=== PATIENT | female | born 1965 | race Caucasian/White ===

== ENCOUNTER 2023-03-17 21:24 | Emergency (ER) | payer BC, SELFPAY ==
[2023-03-17 21:25] VITALS: BP 161/96; PULSE 86; RESP 15; TEMP 36.7; O2SAT 99
[2023-03-17 21:29] VITALS: BMI 48.6
--- NOTE | 2023-03-17 21:40 | RAD_ITS ---
EXAM: XR LEFT FOOT COMPLETE, 3 OR MORE VIEWS CLINICAL INDICATION: foreign body TECHNIQUE: Frontal, lateral and oblique views of the left foot. COMPARISON: No relevant prior studies available. FINDINGS: BONES/JOINTS: See below. SOFT TISSUES: There is metallic nail in the soft tissues of the sole the foot between the first and second metatarsals. There is no bony involvement. No fractures are identified. No soft tissue swelling or gas. RAD/Foot min 3 Views IMPRESSION: Metallic nail in the sole the foot between the first and second metatarsals. There is no osseous abnormality. Electronically Signed: Ernesto Moreno MD at 22:08 EDT ,
[2023-03-17 23:13] VITALS: PULSE 89; RESP 16; O2SAT 97
--- NOTE | 2023-03-17 23:15 | ED.VIS.LOWEX ---
HPI History of Present Illness Chief Complaint: Lower Extremity Injury Narrative Narrative: 57-year-old female presents with nail in the foot. She states that she stepped on it with her left foot while in the yard. She recently had her house removed and this was apparently left over in the yard. Patient's last tetanus is unknown. No active bleeding. PFSH PFSH Home Medications cephalexin 500 mg capsule 500 mg PO Q8H 5 days #15 caps 03/17/23 [Rx Last Taken Unknown] Allergy/AdvReac Type Severity Reaction Status Date / Time Sulfa (Sulfonamide Allergy Hives Verified 03/17/23 21:30 Antibiotics) erythromycin base AdvReac Diarrhea Verified 03/17/23 21:30 Social History Smoking Status: Never smoker ROS ROS ED Constitutional Constitutional ED: Denies chills, fever(s) or sweats Eyes Eyes: Denies blurry vision or change in vision ENT ENT ED: Denies ear pain or sore throat Cardiovascular Cardiovascular: Denies chest pain, palpitations or racing heartbeat Respiratory/Chest Respiratory/Chest: Denies cough, dyspnea or sputum Gastrointestinal Gastrointestinal: Denies abdominal pain, constipation, diarrhea, nausea or vomiting Genitourinary Genitourinary ED: Denies dysuria, hematuria or urinary frequency Musculoskeletal Musculoskeletal: Denies arthralgias, myalgias or neck pain Integumentary Reports other Details: Nail puncture wound left foot ; Denies abscess, Abrasions or rash Neurologic Neurologic: Denies headache(s), paresthesias or weakness Psychiatric Psychiatric: Denies anxiety, depression, suicidal ideation or suicidal thoughts Endocrine Endocrinology: Denies polydipsia or polyuria EXAM Physical Exam Const Vital Signs: 03/17/23 21:25 Temperature 98.1 F Temperature Source Temporal Pulse Rate 86 Respiratory Rate 15 Blood Pressure 161/96 H Blood Pressure Mean 117 Pulse Ox 99 Oxygen Delivery Method Room Air Positive well nourished HEENT atraumatic and trauma Resp normal respiratory effort and no retractions Auscultation: Negative for rales, rhonchi or wheezes Cardio regular rate and regular rhythm Extremity Extremity Narrative: There is a nail embedded in the left foot. There is no surrounding induration or erythema. Left foot neurovascular intact brisk cap refill to all 5 toes. Neuro oriented x3 Sensorium / Orientation: alert MDM MDM MDM Narrative Medical decision making narrative: Initially tried to pull the nail without anesthesia however this is lodged in the skin. This is likely due to the type of nail it is as it is a janeen nail. Patient foot was cleaned and then sterilized with Betadine. Patient was anesthetized with 5 cc of lidocaine with epinephrine with good anesthesia achieved. I was able to pull this out with a needle milk pickup driver of the laceration kit with no difficulty. Minimal bleeding afterwards. I held the patient's foot soaked in soapy water. She will be put on Keflex to prevent infection. Tetanus was updated. Patient declined analgesia Impression: 1. Puncture wound left foot 2. Foreign body removal left foot. Radiography Diagnostic Testing: Clinical Impression(s) from Imaging Studies Foot X-Ray 03/17/23 21:40 IMPRESSION: Metallic nail in the sole the foot between the first and second metatarsals. There is no osseous abnormality. Electronically Signed: Ernesto Moreno MD at 22:08 EDT , Discharge Plan Triage Chief Complaint: Lower Extremity Injury ED Provider: Steve Bejarano Dx/Rx/DC Orders Instructions: ED Foreign Body, Soft Tissue (Removed) Prescriptions: New cephalexin 500 mg capsule 500 mg PO Q8H 5 Days Qty: 15 0RF Primary Care Provider: GUNNAR DELGADO Referrals: GUNNAR DELGADO MD [Primary Care Provider] - Disposition Disposition: Home, Self Care
[2023-03-17] MEDS: Diphth,Pertuss(Acell),Tet Vac 0.5 ML Vial IM (23:23)
[2023-03-17] MEDS: Cephalexin 250 MG Capsule 500 MG PO (23:23)
== END 2023-03-17 23:47 | disposition home or self-care (01) ==
PROVIDERS: Emergency Provider Student in an Organized Health Care Education/Training Program; PCP Specialist; Visit Provider Student in an Organized Health Care Education/Training Program
DX: S91.342A Puncture wound with foreign body, left foot, initial encounter (principal); W22.8XXA Striking against or struck by other objects, initial encounter; Y92.017 Garden or yard in single-family (private) house as the place of occurrence of the external cause; Z23 Encounter for immunization
CPT/HCPCS: 73630; 90715; 99283

== ENCOUNTER 2024-03-10 17:19 | Inpatient (IN) | payer BC, SELFPAY ==
[2024-03-10 17:20] VITALS: BP 141/88; PULSE 137; RESP 24; TEMP 37.1; O2SAT 93; BMI 47.5
[2024-03-10 17:28] VITALS: PULSE 125; RESP 22; TEMP 37.9; O2SAT 92
--- NOTE | 2024-03-10 17:49 | EDS_ITS ---
HPI History of Present Illness Chief Complaint: Cold Sx Informant: patient Onset/Context/Timing Onset: Days Narrative Narrative: Patient presents secondary to URI symptoms with cough and fever. She states about a month ago she got a cold. Her doctor put her on an inhaler, steroids, and an antibiotic. She states she improved but never felt like she completely got over that illness. For the past 4 days she has now had worsening symptoms again and has had fever for the past 36 hours. She does have cough and this evening vomited. She has no urinary symptoms and no diarrhea. She had a sore throat initially but states that seems to be improving. [facility] Medical History (Updated 03/10/24 @ 22:[address] Susan Angel MD) Haylee's disease Asthma Allergy/AdvReac Type Severity Reaction Status Date / Time Sulfa (Sulfonamide Allergy Hives Verified 03/10/24 17:20 Antibiotics) erythromycin base AdvReac Diarrhea Verified 03/10/24 17:20 Social History Smoking Status: Never smoker ROS ROS ED Constitutional Constitutional ED: Reports fever(s) and sweats Eyes Eyes: Denies change in vision ENT ENT ED: Reports rhinorrhea, sore throat and other Details: Sinus congestion Cardiovascular Cardiovascular: Denies chest pain Respiratory/Chest Respiratory/Chest: Reports cough Gastrointestinal Gastrointestinal: Reports vomiting; Denies abdominal pain or diarrhea Genitourinary Genitourinary ED: Denies dysuria or urinary frequency Integumentary Denies rash Neurologic Neurologic: Reports weakness Psychiatric Psychiatric: Denies anxiety or depression EXAM Physical Exam Const Vital Signs: 03/10/24 17:20 03/10/24 17:28 03/10/24 18:11 Temperature 98.7 F 100.3 F H Temperature Source Temporal Oral Pulse Rate 137 H 125 H Respiratory Rate 24 H 22 H Respiratory Effort Short of Breath Respiratory Pattern Tachypnea Blood Pressure 141/88 H Blood Pressure Mean 105 Pulse Ox 93 92 Oxygen Delivery Method Room Air Room Air 03/10/24 19:13 03/10/24 20:03 03/10/24 22:00 Temperature 100.2 F H 98.8 F Temperature Source Oral Oral Pulse Rate 100 97 Respiratory Rate 30 H 23 H Respiratory Effort Respiratory Pattern Blood Pressure 113/53 L 161/90 H Blood Pressure Mean 73 113 Pulse Ox 92 93 Oxygen Delivery Method Room Air Room Air Positive well nourished and well developed General Appearance ED: well developed HEENT Reports moist mucous membranes Eyes EOMs intact bilaterally Chest Wall inspection of chest normal and palpation of chest normal Resp normal respiratory effort and clear to auscultation bilaterally Cardio regular rhythm Rate: tachycardic GI non-tender Palpation: soft Extremity normal to inspection Neuro oriented x3 and no sensory deficits noted Motor Exam: strength 5/5 throughout Psych mental status grossly normal Skin no rashes or lesions noted MDM MDM MDM Narrative Medical decision making narrative: Given the patient's low-grade fever and tachycardia I will have nursing staff insert an IV. She will be given IV fluids along with Zofran and Tylenol. Labwork obtained to evaluate for leukocytosis, anemia, and electrolyte derangement. Chest x-ray obtained to evaluate for acute lung pathology, cardiac size, or mediastinal abnormality. Swab for COVID, influenza, and RSV will be obtained. History & Record Review Discussion w/independent historian: Patient Lab Data Attestation: I reviewed the patient's lab results. Labs: Laboratory Results - last 24 hr 03/10/24 03/10/24 17:50 20:47 WBC 21.4 H RBC 4.47 Hgb 13.4 Hct 40.6 MCV 90.8 MCH 30.0 MCHC 33.0 RDW Std Deviation 45.0 H RDW Coeff of Leonardo 13.5 Plt Count 267 MPV 10.3 Immature Gran % (Auto) 0.700 Neut % (Auto) 84.2 H Lymph % (Auto) 9.2 L [place] % (Auto) 5.6 Eos % (Auto) 0.0 Baso % (Auto) 0.3 Absolute Neuts (auto) 18.0 H Absolute Lymphs (auto) 1.96 Nucleated RBC % 0 Sodium 133 L Potassium 3.2 L Chloride 97 L Carbon Dioxide 24.0 Anion Gap 12 BUN 11 Creatinine 0.91 Estim Creat Clear Calc 94.63 Est GFR (MDRD) Af Amer 82 Est GFR (MDRD) Non-Af 68 BUN/Creatinine Ratio 12.1 Glucose 135 H Calcium 9.0 Urine Color Yellow Urine Clarity Sl. Cloudy Urine pH 7.0 Ur Specific [place] 1.005 Urine Protein Negative Urine Glucose (UA) Normal Urine Ketones 5 H Urine Occult Blood Negative Urine Nitrite Negative Urine Bilirubin Negative Urine Urobilinogen Normal Ur Leukocyte Esterase Negative Urine RBC 0 SEEN Urine WBC 0 SEEN Ur Squamous Epith Cells 0-5 SEEN Urine Bacteria 0 SEEN Urine Mucus 0 SEEN Radiography Chest X-Ray - ED: 1 View, Read by ED Physician, Chronic Changes and No Infiltrates Diagnostic Testing: Clinical Impression(s) from Imaging Studies Chest X-Ray 03/10/24 18:05 IMPRESSION: No acute radiographic abnormalities. Electronically Signed: Hai Bonds MD at 18:21 EDT , Chest CTA 03/10/24 19:32 IMPRESSION: Moderate volume nonocclusive acute pulmonary emboli in the right subsegmental and left segmental and subsegmental pulmonary arteries. No evidence of right heart strain. Bubbly consolidation with groundglass opacities in the left lower lobe most likely represents lung infarction. Cannot rule out superimposed infection. 1.5 cm irregular pulmonary nodule in the left lower lobe. Recommend follow-up chest CT in 3 months, PET/CT and/or biopsy. Electronically Signed: Hai Bonds MD at 21:39 EDT , ADDENDUM: 03/10/24 2153 IMPRESSION: Moderate volume nonocclusive acute pulmonary emboli in the right subsegmental and left segmental and subsegmental pulmonary arteries. No evidence of right heart strain. Bubbly consolidation with groundglass opacities in the left lower lobe most likely represents lung infarction. Cannot rule out superimposed infection. 1.5 cm irregular pulmonary nodule in the left lower lobe. Recommend follow-up chest CT in 3 months, PET/CT and/or biopsy. N.B. : Susan Angel MD, confirmed on 03/10/2024 21:46:33 (ET) that the healthcare facility has received the radiology report. Electronically Signed: Hai Bonds MD at 21:39 EDT , Abdomen/Pelvis CT 03/10/24 19:33 IMPRESSION: Minimal bilateral hydronephrosis. No obstructing stone or mass seen. Electronically Signed: Hai Bonds MD at 21:42 EDT , EKG Initial EKG: Attestation: I personally reviewed and interpreted this EKG as follows: Interpretation: Sinus Tachycardia (Sinus tachycardia at 108. No significant ischemia. QTc is 466.) Treatment and Re-Evaluation :: CBC was elevated white count 21.4 with 84% neutrophils. Hemoglobin is 13.4. Chemistry studies reveal a sodium of 133 and a chloride of 97. Potassium is slightly low at 3.2. Renal function is unremarkable. Glucose is 135. Urinalysis reveals no evidence of acute infection. Swab for COVID, influenza, and RSV is negative. Portable chest x-ray per my interpretation was no obvious infiltrate. Radiology interpretation reviewed and agrees. On repeat vital signs, patient continues to have tachypnea with a respiratory rate of 30 and a pulse ox of 92% on room air just lying at rest. She remains borderline tachycardic at 100 bpm. Patient sent for CTA of the chest to evaluate for potential infiltrate or PE as well as a CT scan of the abdomen and pelvis given her leukocytosis and vomiting. CT scan of the chest reveals moderate volume nonocclusive acute pulmonary emboli in the right subsegmental and left segmental and subsegmental pulmonary arteries. No evidence of right heart strain. There is a bubbly consolidation in the left lower lobe that most likely represents lung infarction. Cannot rule out superimposed infection. CT scan of the abdomen pelvis reveals mild bilateral hydronephrosis but no evidence of stone or mass. Test results discussed with the patient. Lying in bed her O2 sat is 90%. As were talking and goes up to 92-93%. I did discuss with the patient that given her fever and cough I do suspect she also has underlying pneumonia. I will obtain an EKG to ensure normal QTc with plan to give her Levaquin. I will also give her a dose of Lovenox and give her oral potassium replacement for her slightly low potassium. Given her bilateral emboli with pneumonia versus infarct as well as borderline O2 sats when lying in bed, I do feel she should be observed overnight. I will speak with the hospitalist. Discharge Plan Dx/Rx/DC Orders Clinical Impression: Pulmonary emboli, Pneumonia, Hypokalemia Disposition Disposition: Acute Care Hospital [facility]
[2024-03-10] MEDS: 0.9% Normal Saline (1000mL) 1,000 ML 1000 ML IV (17:55)
[2024-03-10] MEDS: Acetaminophen 500 MG Tablet 1000 MG PO (17:56)
--- NOTE | 2024-03-10 17:58 | ED.RN ---
Pt refused Zofran @ this time aFter medication was pulled into a syringe. Scanner min room not functional, medication wasted.
[2024-03-10 18:05] LABS: Absolute Lymphocyte Count 1.96 X10^3/uL (0.83-4.51); Basophil# 0.07 X10^3/uL; Basophil% 0.3 % (0-1); Eosinophil# 0.01 X10^3/uL; Hematocrit 40.6 % (37-47); Hemoglobin 13.4 g/dL (12.0-15.0); Lymphocyte # 1.96 X10^3/ul (0.83-4.51); Lymphocyte % 9.2 % (19-41); Mean Corpuscular Volume 90.8 fL (81-99); Mean Platelet Vol. 10.3 fl (6.2-12.0); Monocyte# 1.19 X10^3/uL; Monocyte% 5.6 % (0-10); NRBC Flagged by Analyzer 0 % (0-5); Neutrophil # 18.02 X10^3/uL (2.7-7.7); Neutrophil % 84.2 % (47-70); Platelet Count 267 K/mm3 (150-450); RBC Distribution Width CV 13.5 % (11.6-14.6); Red Blood Count 4.47 M/mm3 (4.2-5.4); White Blood Count 21.4 K/mm3 (4.4-11.0)
--- NOTE | 2024-03-10 18:05 | RAD_ITS ---
INDICATION: cough EXAMINATION/TECHNIQUE: X-RAY - XR Chest 1 View COMPARISON: 07/17/2010. FINDINGS: The lungs are clear. Tortuous and calcified thoracic aorta. The heart is mildly enlarged. No pleural effusion or pneumothorax. Degenerative changes of the thoracic spine. RAD/Chest 1 View (Portable) IMPRESSION: No acute radiographic abnormalities. Electronically Signed: Hai Bonds MD at 18:21 EDT ,
[2024-03-10 18:20] LABS: Anion Gap 12 (5-15); BUN 11 mg/dL (7-18); BUN/Creat Ratio 12.1 RATIO (10-20); Chloride 97 mmol/L (98-107); Creatinine, Serum 0.91 mg/dL (0.55-1.02); EST Glomerular Filtration Rate 68 mL/min (>60); Est Glom Filt Rate - Afr Amer 82 mL/min (>60); Estimated Creatinine Clearance 94.63 ml/min; Glucose 135 mg/dL (74-106); Potassium 3.2 mmol/L (3.5-5.1); Sodium Level 133 mmol/L (136-145)
[2024-03-10 19:13] VITALS: BP 113/53; PULSE 100; RESP 30; TEMP 37.9; O2SAT 92
--- NOTE | 2024-03-10 19:32 | CT_ITS ---
INDICATION: sob EXAMINATION: CTA Chest WO/W Contrast Injection TECHNIQUE: Helically acquired images were obtained of the chest following administration of IV contrast. A radiation dose optimization technique was used for this scan. 3D postprocessing images including MIPS were reviewed. IV Contrast dosage and agent: IV 100mL [id number]-370 COMPARISON: None. FINDINGS: Lungs: Bubbly consolidation with groundglass opacities in the left lower lobe. There is a 1.5 cm irregular pulmonary nodule in the left lower lobe (image 76, series 2). Mediastinum: The cardiomediastinal silhouette is not enlarged. No mediastinal, hilar or axillary adenopathy. Mild aortic arch and coronary artery calcifications. Moderate volume nonocclusive clot seen within the right subsegmental and left segmental and subsegmental pulmonary arteries. No evidence of right heart strain. Pleura: Unremarkable Bones/Soft tissues: There are diffuse degenerative changes of the spine. Upper abdomen: Refer to CT abdomen pelvis report same date CT/CTA Chest W/WO Contrast IMPRESSION: Moderate volume nonocclusive acute pulmonary emboli in the right subsegmental and left segmental and subsegmental pulmonary arteries. No evidence of right heart strain. Bubbly consolidation with groundglass opacities in the left lower lobe most likely represents lung infarction. Cannot rule out superimposed infection. 1.5 cm irregular pulmonary nodule in the left lower lobe. Recommend follow-up chest CT in 3 months, PET/CT and/or biopsy. Electronically Signed: Hai Bonds MD at 21:39 EDT ,
--- NOTE | 2024-03-10 19:33 | CT_ITS ---
INDICATION: vomiting, leukocytosis, fever EXAMINATION: CT Abdomen And Pelvis W/ Contrast Injection TECHNIQUE: Helically acquired images were obtained of the abdomen and pelvis after IV contrast. A radiation dose optimization technique was used for this scan. IV Contrast dosage and agent: IV 100mL Isovue-370 Oral contrast: None. COMPARISON: None. FINDINGS: Visualized lung bases: Refer to CT chest report same date Liver: Unremarkable Gallbladder: Surgically absent. Spleen: Unremarkable Pancreas: Unremarkable Adrenal Glands: Unremarkable Kidneys: Minimal bilateral hydronephrosis. No obstructing stone or mass seen. Vasculature: Unremarkable GI Tract: Unremarkable Lymphadenopathy: None Peritoneum: No ascites. Bladder: Unremarkable Reproductive organs: Bilateral tubal ligation clips. Bones/Soft tissues: No suspicious osseous or soft tissue lesions CT/Abdomen/Pelvis W IV Cont ONLY IMPRESSION: Minimal bilateral hydronephrosis. No obstructing stone or mass seen. Electronically Signed: Hai Bonds MD at 21:42 EDT ,
[2024-03-10 20:03] VITALS: TEMP 37.1
[2024-03-10 20:56] LABS: Bacteria 0 SEEN /hpf (None Seen); Mucous, Urine 0 SEEN /hpf (<or=2+); Red Blood Cells-Urine 0 SEEN /hpf (0-5); White Blood Cells 0 SEEN /hpf (0-5)
[2024-03-10 21:17] LABS: Color, Urine Yellow (Yellow); Glucose, Dipstick Normal (Normal); Ketone-Dipstick 5 mg/dl (Negative); Leukocyte Esterase-Dipstick Negative /ul (Negative); Nitrite-Dipstick Negative (Negative); Occult Blood-Urine Negative /ul (Negative); Protein-Dipstick Negative (Negative); Specific Gravity, Urine 1.005 (1.002-1.030); Urine Bilirubin Dipstick Negative (Negative); Urine Clarity Sl. Cloudy (Clear); Urine Urobilinogen Normal (Normal)
[2024-03-10 21:30] LABS: Squamous Epithelial Cells - UA 0-5 SEEN /hpf (5-10)
--- NOTE | 2024-03-10 21:59 | EKG12_ITS ---
Test Reason : COLD SX Blood Pressure : / mmHG Vent. Rate : 108 BPM Atrial Rate : 108 BPM P-R Int : 142 ms QRS Dur : 098 ms QT Int : 348 ms P-R-T Axes : 060 041 035 degrees QTc Int : 466 ms Sinus tachycardia MINOR Nonspecific ST abnormality BORDERLINE Confirmed by Con Candelaria ([id number]), continuity editor BRIANNA RUBIO ([id number]) on 03/14/2024 7:00:49 AM Referred By: Vivian Saini Confirmed By:Con Candelaria
[2024-03-10 22:00] VITALS: BP 161/90; PULSE 97; RESP 23; O2SAT 93
--- NOTE | 2024-03-10 22:12 | PCM.HP.STD ---
HPI - General General Date of Admission: 03/10/24 Date of Service: 03/10/24 Chief Complaint: URI symptoms, worsening. HPI Narrative The patient is a 58 y/o F w/ PMHx: History Diabetes mellitus type II (reported prior HgbA1c 7%-->recent 5% with weight loss, lifestyle/diet changes), HAY on CPAP q HS, Morbid obesity, Asthma, Haylee's disease with hypothyroidism who presents to the [facility] ED on 03/10/2024 with recent history of ongoing URI type symptoms with fatigue, malaise, cough and fevers with symptoms starting several weeks prior with PCP evaluation with inhaler, steroids and antibiotic therapy with some improvement but she felt like she never completely resolved and unfortunately over the past 4 days her symptoms significantly worsened and she started having a fever over the last 36 hours with onset of nausea and emesis and ongoing cough prompting ED evaluation. In addition she reports recent prolonged drive from [place] with very minimal stops noting that they left on Thursday and returned this past Thursday with onset of left lower extremity discomfort the day following her return. Of note she does have a family history in her father of Marfan syndrome but has had a workup and is negative herself. Workup in the ED included Tmax 100.3, heart rate 137, BP 141/88, respiratory rate 24, 93% on room air, most recent repeat vital signs T98.8, heart rate 100, BP 113/53, respiratory rate 30, 92% on room air, CBC with WBC 21.4, human 13.4, platelet 267 with left shift, BMP with sodium 133, potassium 3.2, chloride 97, glucose 135, urinalysis not marked appearing, SARS COVID/influenza/RSV PCR negative, chest x-ray with no acute cardiopulmonary findings, chest CT PA with moderate volume nonocclusive acute pulmonary emboli right subsegmental and left segmental and subsegmental pulmonary arteries with no evidence of any right heart strain, bubbly consolidation with ground-glass opacities left lower lobe consistent with a lung infarction although cannot rule out a superimposed infection, 1.5 cm irregular pulmonary nodule left lower lobe, CT abdomen and pelvis with minimal bilateral hydronephrosis with no obstructing stone or mass seen. In the ED patient administered potassium 40 mill equivalent p.o. x 1, Zofran 4 mg IV x 1, Lovenox 130 mg subcu x 1, Tylenol 1000 mg p.o. x 1 and 1 L normal saline bolus. ED physician noted plan to obtain EKG to evaluate QTc and if appropriate administer Levaquin therapy for concern for pneumonia. [facility] Medical History History of diabetes mellitus HAY on CPAP Hypothyroidism Morbid obesity Haylee's disease Asthma Home Medications ?Medication ?Instructions ?Recorded ?Last Taken ?Type albuterol sulfate 90 mcg/actuation 2 puff inhalation Q4H PRN PRN 03/10/24 Unknown History aerosol inhaler shortness of breath or wheezing cholecalciferol (vitamin D3) 250 10,000 unit PO DAILY 03/10/24 Unknown History mcg (10,000 unit) capsule Supplimentation cyanocobalamin (vitamin B-12) 1,000 mcg PO QMONTH Supplimentation 03/10/24 Unknown History 1,000 mcg capsule fluticasone propionate 50 2 spray intranasal QODAY Allergies 03/10/24 Unknown History mcg/actuation nasal spray,suspension levothyroxine 88 mcg tablet 88 mcg PO DAILY hypothyroid 03/10/24 Unknown History [id number]-[id number] acid 0.4 1 tab PO DAILY Supplimentation 03/10/24 Unknown History mg-lycopene 300 mcg-lutein 250 mcg tablet (Centrum Silver) omega 5-xny-vrn-fish oil 1,200 mg 1 cap PO DAILY Suppliumentation 03/10/24 Unknown History (144 mg-216 mg) capsule (Fish Oil) semaglutide (weight loss) 1 mg/0.5 0.25 mg subcut QWEEK Weight Loss 03/10/24 Unknown History mL subcutaneous pen injector Allergy/AdvReac Type Severity Reaction Status Date / Time Sulfa (Sulfonamide Allergy Hives Verified 03/10/24 17:20 Antibiotics) erythromycin base AdvReac Diarrhea Verified 03/10/24 17:20 Family History (Updated 03/10/24 @ 23:[address] Vivian Saini MD) Mother Thyroid disorder MVP (mitral valve prolapse) Father Heart disease Aortic aneurysm Marfan syndrome Surgical History S/P dilation and curettage Status post endometrial ablation History of dental surgery History of tonsillectomy and adenoidectomy S/P cholecystectomy Social History (Updated 03/10/24 @ 23:[address] Vivian Saini MD) household members: spouse Smoking Status: Never smoker alcohol intake: never substance use type: does not use ROS ROS Narrative Admission Review of Systems: CONSTITUTIONAL: No weight loss, + fever, chills, weakness or fatigue. HEENT: + Congestion, runny nose, sore throat, sneezing. Eyes: No visual loss, blurred vision, double vision or yellow sclerae. Ears, Nose, Throat: No hearing loss. SKIN: No rash or itching, lesions, wounds. CARDIOVASCULAR: No chest pain, chest pressure or chest discomfort, palpitations, edema, orthopnea, syncopal events. RESPIRATORY: + Dry cough, no marked sputum, dyspnea. No wheezing, hemoptysis. GASTROINTESTINAL: + Anorexia, nausea, vomiting. No diarrhea, abdominal pain, melena, BRBPR. GENITOURINARY: No dysuria, frequency, urgency or retention. NEUROLOGICAL: No headache, dizziness, syncope, paralysis, ataxia, numbness or tingling in the extremities, focal weakness, change in bowel or bladder control, seizure. MUSCULOSKELETAL: + muscle, back pain, joint pain or stiffness. HEMATOLOGIC: No anemia, bleeding or bruising. LYMPHATICS: No enlarged nodes. No history of splenectomy. PSYCHIATRIC: No history of depression or anxiety. ENDOCRINOLOGIC: No reports of sweating, cold or heat intolerance. No polyuria or polydipsia. ALLERGIES: + History of hives, asthma, allergic rhinitis. Vital Signs Vital Signs Vital Signs: 03/10/24 17:20 03/10/24 17:28 03/10/24 18:11 Temperature 98.7 F 100.3 F H Temperature Source Temporal Oral Pulse Rate 137 H 125 H Respiratory Rate 24 H 22 H Respiratory Effort Short of Breath Respiratory Pattern Tachypnea Blood Pressure 141/88 H Blood Pressure Mean 105 Pulse Ox 93 92 Oxygen Delivery Method Room Air Room Air 03/10/24 19:13 03/10/24 20:03 03/10/24 22:00 Temperature 100.2 F H 98.8 F Temperature Source Oral Oral Pulse Rate 100 97 Respiratory Rate 30 H 23 H Respiratory Effort Respiratory Pattern Blood Pressure 113/53 L 161/90 H Blood Pressure Mean 73 113 Pulse Ox 92 93 Oxygen Delivery Method Room Air Room Air Weight Weight: 294 lb 3.2 oz Body Mass Index (BMI) 47.5 Physical Exam Narrative Physical Examination: General: Awake, alert, oriented x 3 and cooperative, seated upright in the ED bed, fatigued appearing, intermittent coughing during evaluation. Skin: Normal color, normal turgor, no icterus, no cyanosis. HEENT: AT/NC, EOMI, PERRLA, dry MM, no carotid bruits or JVD noted; however, thickened neck makes evaluation difficult. Lungs: Diminished, greater bases, right greater than left, mildly increased respiratory rate but no distress, coughing elicited with deep inspiratory effort, no rales, ronchi or wheezing. Heart: Tachycardic with regular rhythm; no gallop, rub audible. Abdomen: Soft, morbidly obese, NTTP, distant mildly hyperactive BS, no appreciated distention or HSM; however, habitus makes evaluation difficult. Extremities: No cyanosis, no clubbing, no marked peripheral edema. Neurological: Patient awake, alert, oriented as noted, cognitive function intact; pupils equally reactive to light and accommodation, cranial nerves grossly normal, moving all 4 extremities, no focal deficits, strength moderately to severely global decreased secondary to acute presentation complaints. Psychiatric: Affect appears flat, fatigued, ill-appearing, no acute evidence of depressive or anxiety feelings. Results Lab / Micro Data 03/10/24 17:50 03/10/24 17:50 Labs: Laboratory Results - last 24 hr 03/10/24 17:50: WBC 21.4 H, RBC 4.47, Hgb 13.4, Hct 40.6, MCV 90.8, MCH 30.0, MCHC 33.0, RDW Std Deviation 45.0 H, RDW Coeff of Leonardo 13.5, Plt Count 267, MPV 10.3, Immature Gran % (Auto) 0.700, Neut % (Auto) 84.2 H, Lymph % (Auto) 9.2 L, [place] % (Auto) 5.6, Eos % (Auto) 0.0, Baso % (Auto) 0.3, Absolute Neuts (auto) 18.0 H, Absolute Lymphs (auto) 1.96, Nucleated RBC % 0, Sodium 133 L, Potassium 3.2 L, Chloride 97 L, Carbon Dioxide 24.0, Anion Gap 12, BUN 11, Creatinine 0.91, Estim Creat Clear Calc 94.63, Est GFR (MDRD) Af Amer 82, Est GFR (MDRD) Non-Af 68, BUN/Creatinine Ratio 12.1, Glucose 135 H, Calcium 9.0 03/10/24 20:47: Urine Color Yellow, Urine Clarity Sl. Cloudy, Urine pH 7.0, Ur Specific [place] 1.005, Urine Protein Negative, Urine Glucose (UA) Normal, Urine Ketones 5 H, Urine Occult Blood Negative, Urine Nitrite Negative, Urine Bilirubin Negative, Urine Urobilinogen Normal, Ur Leukocyte Esterase Negative, Urine RBC 0 SEEN, Urine WBC 0 SEEN, Ur Squamous Epith Cells 0-5 SEEN, Urine Bacteria 0 SEEN, Urine Mucus 0 SEEN Micro: Microbiology 03/10/24 18:00 Mucosa - Nose SARS-CoV-2, Influenza & RSV (PCR) - Final Imaging Radiology Impression Chest X-Ray 03/10/24 18:05 IMPRESSION: No acute radiographic abnormalities. Electronically Signed: Hai Bonds MD at 18:21 EDT , Chest CTA 03/10/24 19:32 IMPRESSION: Moderate volume nonocclusive acute pulmonary emboli in the right subsegmental and left segmental and subsegmental pulmonary arteries. No evidence of right heart strain. Bubbly consolidation with groundglass opacities in the left lower lobe most likely represents lung infarction. Cannot rule out superimposed infection. 1.5 cm irregular pulmonary nodule in the left lower lobe. Recommend follow-up chest CT in 3 months, PET/CT and/or biopsy. Electronically Signed: Hai Bonds MD at 21:39 EDT , ADDENDUM: 03/10/243 IMPRESSION: Moderate volume nonocclusive acute pulmonary emboli in the right subsegmental and left segmental and subsegmental pulmonary arteries. No evidence of right heart strain. Bubbly consolidation with groundglass opacities in the left lower lobe most likely represents lung infarction. Cannot rule out superimposed infection. 1.5 cm irregular pulmonary nodule in the left lower lobe. Recommend follow-up chest CT in 3 months, PET/CT and/or biopsy. N.B. : Susan Angel MD, confirmed on 03/10/2024 21:46:33 (ET) that the healthcare facility has received the radiology report. Electronically Signed: Hai Bonds MD at 21:39 EDT , Abdomen/Pelvis CT 03/10/24 19:33 IMPRESSION: Minimal bilateral hydronephrosis. No obstructing stone or mass seen. Electronically Signed: Hai Bonds MD at 21:42 EDT , Assessment & Plan Assessment/Plan (1) Pulmonary emboli: (2) Pneumonia: PLAN: Plan The patient is a 58 y/o F w/ PMHx: History Diabetes mellitus type II (reported prior HgbA1c 7%-->recent 5% with weight loss, lifestyle/diet changes), HAY on CPAP q HS, Morbid obesity, Asthma, Haylee's disease with hypothyroidism who presents to the [facility] ED on 03/10/2024 with recent history of ongoing URI type symptoms with fatigue, malaise, cough and fevers with symptoms starting several weeks prior with PCP evaluation with inhaler, steroids and antibiotic therapy with some improvement but she felt like she never completely resolved and unfortunately over the past 4 days her symptoms significantly worsened and she started having a fever over the last 36 hours with onset of nausea and emesis and ongoing cough prompting ED evaluation. #1. Nonocclusive acute pulmonary emboli in the right subsegmental and left segmental as well as subsegmental pulmonary arteries as well as bubbly consolidation groundglass opacities left lower lobe consistent with likely lung infarction although cannot rule out left lower lobe pneumonia especially given URI type symptoms with fever/cough, worsening: EKG without acute findings, CXR no acute process, CTPA as noted. No family history of hypercoaguable state and recent prolonged travel as likely source of her acute PE presentation. She denies marked chest pain. Will admit to PCU, maintain on cardiac telemetry. Will obtain ECHO, BNP, troponin. At this time patient was administered therapeutic Lovenox in the ED thus we will continue until oral options may be investigated. Additionally will maintain on oxygen with wean as tolerated to room air, maintain on ATC budesonide therapy, PRN albuterol, maintain on IV Levaquin which was initiated in the ED pending further evaluation as noted, HOB, IS parameters w/ pending sputum cultures, full respiratory viral panel, procalcitonin and urine antigens. #2. Incidental minimal bilateral hydronephrosis: CT abdomen and pelvis with minimal bilateral hydronephrosis, no evidence of any obstructing stone or mass. #3. Incidental left lower lobe pulmonary nodule: CTA chest with 1.5 cm irregular pulmonary nodule left lower lobe, will need follow-up outpatient repeat CT imaging to further evaluate and follow-up. #4. Hyponatremia, hypochloremia, suspected hypovolemic component: Admission BMP with sodium 133, chloride 97, continue to judiciously hydrate and repeat CMP in AM. #5. Hypokalemia: Admission K+ 3.2, magnesium level requested, supplementation given, repeat level in AM. #6. History Diabetes mellitus type II: Patient specifically reported prior HgbA1c 7%-->recent 5% with weight loss, lifestyle/diet changes, will maintain on ADA diet and given acute infectious presentation will maintain also on accu checks with ISS. #7. Chronic asthma: Given presentation as noted #1 will maintain on ATC budesonide therapy, PRN albuterol, HOB, IS parameters. #8. Haylee's disease with hypothyroidism: We will continue patient on levothyroxine regimen. #9. Morbid Obesity: Weight loss and lifestyle changes encouraged. #10. HAY: CPAP q HS. #11. DVT prophylaxis: Continue therapeutic lovenox as initiated in the ED pending investigation of cost for NOACs #12. CODE status: Patient does not have healthcare Pap estate planning attorney or living will in place but her who is present she notes would be her decision-maker if necessary. Discussed CODE status at length including difference between FULL code, DNR-CCA and DNR-CC status. Following discussions about the differences in these status, requested Full Code status. Advanced Care Planning Face to Face Time: 16 minutes.. Charges/Coding Visit Charges Inpatient E&M: 13105 Init Hosp L3 Procedures Hospitalists Procedures: 16957 Advncd Care Plan 30 Min
[2024-03-10] MEDS: Potassium Chloride Oral Tablet 20 MEQ 40 MEQ PO (22:17)
[2024-03-10 22:37] LABS: Troponin-I HS 7 pg/mL (3.0-54.0)
[2024-03-10] MEDS: Enoxaparin 150 MG/ML Syringe 130 MG SC (22:45)
--- NOTE | 2024-03-10 23:32 | ECHOCS_ITS ---
Reason For Study: PE Procedure This was a 2D Doppler, Color Flow transthoracic echocardiogram. Myocardial strain analysis was performed in this exam to aid in the assessment of cardiac function. Contrast injection was performed. Exam performed portable in patient room. Left Ventricle Normal left ventricle. The estimated ejection fraction is 55-60 %. Right Ventricle Normal right ventricle. Normal systolic function. Atria Normal left atrium. Normal right atrium. Mitral Valve The mitral valve is structurally normal. No prolapse or stenosis seen. Trivial mitral valve insufficiency. Aortic Valve Trisinus/trileaflet aortic valve. Trivial eccentric aortic valve insufficiency. Pulmonic Valve The pulmonic valve is not well visualized. Great Vessels The aortic root is not well visualized. Pericardium/Pleural No pericardial effusion. Medication Diluted definity 1ml given slow IV push to enhance endocardial definition. MMode/2D Measurements & Calculations LVIDd: 4.4 cm IVSd: 1.1 cm Ao root diam: 3.6 cm LVIDs: 2.8 cm LVPWd: 1.2 cm RVDd: 3.8 cm FS: 36.3 % LAV(MOD-bp): 27.9 ml LVAd ap4: 30.0 cm2 SV(MOD-sp4): 53.3 ml LAV(MOD-bp) Indexed: 11.8 ml/m2 LVLd ap4: 7.9 cm LAV(MOD-sp2): 32.6 ml EDV(MOD-sp4): 92.2 ml LAV(MOD-sp4): 21.9 ml EDV(sp4-el): 96.7 ml LVAs ap4: 17.7 cm2 LVLs ap4: 6.6 cm ESV(MOD-sp4): 39.0 ml ESV(sp4-el): 40.5 ml EF(MOD-sp4): 57.8 % EF(sp4-el): 58.1 % SV(sp4-el): 56.2 ml LA A4 area: 11.1 cm2 RA A4 area: 12.1 cm2 TAPSE: 2.1 cm Time Measurements MV dec time: 0.20 sec Doppler Measurements & Calculations MV E max xavier: 64.4 cm/sec Lat Peak E' Xavier: 10.6 cm/sec Med Peak E' Xavier: 8.1 cm/sec MV A max xavier: 87.5 cm/sec E/E' lat: 6.1 E/E' med: 7.9 MV E/A: 0.74 MV V2 max: 96.1 cm/sec MV dec slope: 317.9 cm/sec2 Ao V2 max: 141.8 cm/sec MV max P.7 mmHg Ao max P.0 mmHg MV V2 mean: 63.3 cm/sec Ao V2 mean: 102.3 cm/sec MV mean P.8 mmHg Ao mean P.6 mmHg MV V2 VTI: 17.3 cm Ao V2 VTI: 26.1 cm AV (velocity ratio): 0.73 LV V1 max: 102.0 cm/sec PA V2 max: 85.5 cm/sec LV V1 max P.2 mmHg PA max PG (full): 0.66 mmHg LV V1 mean P.5 mmHg LV V1 mean: 74.3 cm/sec LV V1 VTI: 18.9 cm ECHO/Echo Complete W/ Contrast Interpretation Summary The estimated ejection fraction is 55-60 %. No change from previous study contrast /Definty used Ordering Physician: Con Green Referring Physician: Aundrea Laboy Performed By: Vidhya Robin RVT, RDCS and Student
[2024-03-10 23:33] VITALS: BMI 47.6
[2024-03-11] VITALS (7 sets, daily range): BP systolic 126–148; BP diastolic 58–76; PULSE 79–108; RESP 17–20; TEMP 35.6–37.2; O2SAT 89–95; BMI 47.6
--- NOTE | 2024-03-11 00:23 | CPS ---
Patient placed on sleep lab PAP machine for the night
[2024-03-11] MEDS: levoFLOXacin IV 750 MG/150 ML BAG 100 MG IV (00:39)
[2024-03-11] MEDS: 0.9% Saline Lock 10 ML Syringe IV ×2 (00:39→01:27)
[2024-03-11 01:12] LABS: BNP,B-Type NATRIURETIC PEPTIDE 7.9 pg/mL (0-100)
[2024-03-11 01:14] LABS: Magnesium 2.2 mg/dL (1.6-2.6); Troponin-I HS 7 pg/mL (3.0-54.0)
[2024-03-11] MEDS: Acetaminophen 325 MG Tablet 650 MG PO (02:23)
[2024-03-11 04:43] LABS: Procalcitonin 0.38 ng/mL (0.00-0.09)
[2024-03-11 05:02] LABS: Absolute Lymphocyte Count 2.57 X10^3/uL (0.83-4.51); Absolute Neutrophil Count 13.1 X10^3/uL (2.0-7.7); Basophil# 0.06 X10^3/uL; Basophil% 0.3 % (0-1); Eosinophil# 0.03 X10^3/uL; Eosinophils% 0.2 % (0-5); Hemoglobin 12.3 g/dL (12.0-15.0); Lymphocyte # 2.57 X10^3/ul (0.83-4.51); Lymphocyte % 14.8 % (19-41); Mean Corp Hgb Conc 32.4 g/dL (32-36); Mean Corpuscular Hgb 29.7 pg (27.0-32.0); Mean Corpuscular Volume 91.8 fL (81-99); Mean Platelet Vol. 10.3 fl (6.2-12.0); Monocyte# 1.46 X10^3/uL; Monocyte% 8.4 % (0-10); NRBC Flagged by Analyzer 0 % (0-5); Neutrophil # 13.11 X10^3/uL (2.7-7.7); Neutrophil % 75.6 % (47-70); Platelet Count 270 K/mm3 (150-450); RBC Distribution Width CV 13.6 % (11.6-14.6); RBC Distribution Width SD 45.9 fl (35.1-43.9); Red Blood Count 4.14 M/mm3 (4.2-5.4); White Blood Count 17.4 K/mm3 (4.4-11.0)
[2024-03-11 05:20] LABS: Troponin-I HS 6 pg/mL (3.0-54.0)
[2024-03-11 05:23] LABS: ALB/GLOB Ratio 0.5 RATIO (0.9-2.4); AST(SGOT) 18 U/L (15-37); Alanine Aminotransfer ALT/SGPT 20 U/L (13-56); Albumin, Serum 2.7 g/dL (3.2-5.0); Alkaline Phosphatase 90 U/L (45-117); Anion Gap 9 (5-15); BUN 10 mg/dL (7-18); BUN/Creat Ratio 13.7 RATIO (10-20); Calcium,Total 8.6 mg/dL (8.5-10.1); Chloride 104 mmol/L (98-107); Creatinine, Serum 0.73 mg/dL (0.55-1.02); EST Glomerular Filtration Rate 87 mL/min (>60); Est Glom Filt Rate - Afr Amer 105 mL/min (>60); Estimated Creatinine Clearance 118.21 ml/min; Globulin 5.5 g/dL (2.2-4.2); Glucose 110 mg/dL (74-106); Potassium 3.2 mmol/L (3.5-5.1); Protein, Total 8.2 g/dL (6.4-8.2); Sodium Level 136 mmol/L (136-145)
[2024-03-11] MEDS: Levothyroxine 88 MCG Tablet PO (06:34)
[2024-03-11 07:11] LABS: Bedside Glucose 101 mg/dL (74-106)
[2024-03-11] MEDS: Budesonide Respules 0.5 MG/2 ML AMPUL.NEB. INHALATION (07:14)
[2024-03-11] MEDS: Enoxaparin 150 MG/ML Syringe 130 MG SC (09:51)
--- NOTE | 2024-03-11 11:15 | CASEMGMT ---
Social Work As per initial admitting proof tester, pt does not have LW/POA, declined further information. NISHA Moore
[2024-03-11 12:04] LABS: Bedside Glucose 100 mg/dL (74-106)
--- NOTE | 2024-03-11 12:55 | CASEMGMT ---
RN CM Face to Face with patient for initial transition planning/care coordination assessment. RN CM introduced self and role at [facility]. Patient lying in bed, alert and oriented. Patient willing to participate in assessment and is able to answer all questions appropriately. Care providers, pharmacy, and demographics verified. PCP: ALVINO Laboy Specialists: none Preferred Pharmacy: [facility] Insurance: [place] Prescription Benefit: yes Living Will/HPOA: none LNOK: Living Arrangements: Patient lives with in a single story house with 2 steps to enter. Patient is independent at home. Transportation: self, DME/HHC: Patient has cpap at home. No previous HHC or SNF. Patient wishes to discharge home, denies need for home health at this time. Patient states he has no further needs or concerns at this time. CM to follow for discharge planning needs that may arise. Disposition Plan: Patient to discharge home with family support and follow-up plans in place. Audrey TURNER, RN, CM
--- NOTE | 2024-03-11 13:25 | PCM.DC.SUM ---
Providers Date of Admission: 03/10/24 Date of Discharge: 03/11/24 Primary Care Physician: Aundrea Laboy, [facility] Reason For Visit: PE, PNEUMONIA Diagnosis Discharge Diagnosis (1) Pulmonary emboli: Status: Acute Code(s): I26.99 - Other pulmonary embolism without acute cor pulmonale (2) Pneumonia: Status: Acute Code(s): J18.9 - Pneumonia, unspecified organism Medications at Discharge Home Medications albuterol sulfate 90 mcg/actuation aerosol inhaler 2 puff inhalation Q4H PRN PRN shortness of breath or wheezing 03/10/24 cholecalciferol (vitamin D3) 250 mcg (10,000 unit) capsule 10,000 unit PO DAILY Supplimentation 03/10/24 cyanocobalamin (vitamin B-12) 1,000 mcg capsule 1,000 mcg PO QMONTH Supplimentation 03/10/24 fluticasone propionate 50 mcg/actuation nasal spray,suspension 2 spray intranasal QODAY Allergies 03/10/24 levothyroxine 88 mcg tablet 88 mcg PO DAILY hypothyroid 03/10/24 cokblgth-ttc-isotc acid 0.4 mg-lycopene 300 mcg-lutein 250 mcg tablet (Centrum Silver) 1 tab PO DAILY Supplimentation 03/10/24 omega 0-uej-mvs-fish oil 1,200 mg (144 mg-216 mg) capsule (Fish Oil) 1 cap PO DAILY Suppliumentation 03/10/24 semaglutide (weight loss) 1 mg/0.5 mL subcutaneous pen injector 0.25 mg subcut QWEEK Weight Loss 03/10/24 apixaban 5 mg tablet (Eliquis) 5 mg PO BID 30 days #60 tabs 03/11/24 levofloxacin 750 mg tablet 750 mg PO DAILY 6 days #6 tabs 03/11/24 Hospital Course Operations None Procedures EKG, Transthoracic echo and - (CT chest abdomen pelvis with IV contrast, chest x-ray) Summary of Care Provided Minutes Spent on Discharge: 35 Hospital Course: Patient is a 58-year-old female who presented [facility] ED on 03/10/2024 with cough and shortness of breath. Short hospital course as noted below. Patient discharged home in stable condition on 03/11. 1. Acute DVT/PE, low risk; mild hypoxia, resolved Suspected provoked DVT/PE in setting of recent travel. CTA chest on admit showed moderate volume nonocclusive acute pulmonary emboli and right subsegmental and left segmental and subsegmental pulmonary arteries with no evidence of right heart strain; also showed consolidation with groundglass opacities in left lower lobe most likely representing lung infarction but cannot rule out superimposed infection. Preliminary echo report with normal EF and no right heart strain as well. Placed on 2 L nasal cannula on admission; completed O2 ambulatory test on day of discharge and did not require any supplemental oxygen. Was otherwise hemodynamically stable throughout hospitalization. ? Treated with Lovenox 1 mg/kg twice daily while inpatient. Patient was somewhat hesitant to go on a blood thinner on discharge; was agreeable to taking Eliquis without the loading dose so Eliquis 5 mg twice daily was prescribed on discharge. Recommend 3 months of Eliquis, then follow-up with PCP at that time to discuss repeat imaging to ensure resolution of PE. 2. Community-acquired pneumonia with unknown organism ? CTA chest on admit as noted above. Had low-grade fever with max 100.3 F on day of admission, resolved by hospital day 2. WBC count elevated to 21 on admit, slightly improved to 17 on hospital day 2. Did have infectious type symptoms as well including productive cough and generalized fatigue. Respiratory PCR panel negative. COVID/flu/RSV negative. Legionella and strep urine antigens negative. Treated with IV Levaquin while inpatient, transition to p.o. Levaquin 750 mg daily on discharge with plan for 7-day course of antibiotics total, stop date 03/16. 3. Left lower lobe pulmonary nodule ? CTA chest showed a 1.5 cm irregular pulmonary nodule in the left lower lobe of unclear significance; otherwise had no mediastinal, hilar or axillary adenopathy and CT abdomen pelvis showed no concern for masses in any organs. Recommend repeat CT chest scan in 3 months for further evaluation. 4. Mild diarrhea ? Suspect due to infection plus or minus antibiotics being given for the active infection. CT abdomen pelvis on admit with no concerning findings. Recommended the patient use Imodium [id number]-[id number] as needed while on antibiotics for the next week. 5. Mild hyponatremia, hypochloremia and hypokalemia, improved ? Sodium 133, chloride 97, potassium 3.2 on admit. Presumed secondary to recent poor p.o. intake and GI losses. Improved with IV fluid resuscitation and potassium supplementation. 6. Incidental minimal bilateral hydronephrosis ? Noted on CT abdomen pelvis on admit. No UTI symptoms noted, UA very benign. No issues with urination during admission and had adequate urine output. No further workup needed. Chronic medical conditions: ? Morbid obesity: BMI 47 on admit. On semaglutide injections weekly for weight loss, continue these on discharge. Encouraged lifestyle modifications. Complicated hospital course, care and prognosis. ? HAY: Stable. Continue home CPAP. ? 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 ? Asthma/allergies: Continue home Flonase and albuterol inhaler as needed. Total clinical time spent by myself addressing the patient's medical issues, reviewing all the data, and collaborating with patient's care team: 35 minutes. Physical Exam Const alert, oriented x3 and no apparent distress Constitutional Narrative: Middle-age female, morbidly obese, mildly anxious appearing, otherwise sitting up comfortably in bed, conversing normally, no acute distress. General Appearance: cooperative and comfortable HEENT normocephalic, head/scalp atraumatic, hearing grossly normal bilaterally and nasal mucous membranes and turbinates normal Eyes PERRL, EOMs intact bilaterally and conjunctivae normal Neck full ROM Chest inspection of chest normal Resp normal respiratory effort and no use of accessory muscles Resp Narrative: Mildly decreased breath sounds bilaterally throughout, suspected in part due to body habitus. No wheezing or crackles noted. Breathing comfortably on room air at rest. Cardio regular rate, regular rhythm, no murmurs and peripheral pulses 2+ throughout GI normal to inspection, nondistended, normoactive bowel sounds, soft to palpation, non-tender and non-distended Back/Spine normal ROM Extremity normal to inspection, full ROM and no pedal edema Skin no rashes or lesions noted Neuro moves all extremities and no focal motor deficits Speech: speech normal Psych mental status grossly normal Mood & Affect: anxious Weight / BMI Weight Weight: 133.9 kg Body Mass Index (BMI) 47.6 ABG / Lab / Microbiology Data 03/11/24 04:48 03/11/24 04:48 Laboratory: Laboratory Results - last 24 hr 03/10/24 17:50: WBC 21.4 H, RBC 4.47, Hgb 13.4, Hct 40.6, MCV 90.8, MCH 30.0, MCHC 33.0, RDW Std Deviation 45.0 H, RDW Coeff of Leonardo 13.5, Plt Count 267, MPV 10.3, Immature Gran % (Auto) 0.700, Neut % (Auto) 84.2 H, Lymph % (Auto) 9.2 L, [place] % (Auto) 5.6, Eos % (Auto) 0.0, Baso % (Auto) 0.3, Absolute Neuts (auto) 18.0 H, Absolute Lymphs (auto) 1.96, Nucleated RBC % 0, Sodium 133 L, Potassium 3.2 L, Chloride 97 L, Carbon Dioxide 24.0, Anion Gap 12, BUN 11, Creatinine 0.91, Estim Creat Clear Calc 94.63, Est GFR (MDRD) Af Amer 82, Est GFR (MDRD) Non-Af 68, BUN/Creatinine Ratio 12.1, Glucose 135 H, Calcium 9.0 03/10/24 20:47: Urine Color Yellow, Urine Clarity Sl. Cloudy, Urine pH 7.0, Ur Specific [place] 1.005, Urine Protein Negative, Urine Glucose (UA) Normal, Urine Ketones 5 H, Urine Occult Blood Negative, Urine Nitrite Negative, Urine Bilirubin Negative, Urine Urobilinogen Normal, Ur Leukocyte Esterase Negative, Urine RBC 0 SEEN, Urine WBC 0 SEEN, Ur Squamous Epith Cells 0-5 SEEN, Urine Bacteria 0 SEEN, Urine Mucus 0 SEEN 03/10/24 22:07: Troponin I High Sens 7 03/11/24 00:15: Magnesium 2.2, Troponin I High Sens 7, B-Natriuretic Peptide 7.9, Procalcitonin 0.38 H 03/11/24 04:48: WBC 17.4 H, RBC 4.14 L, Hgb 12.3, Hct 38.0, MCV 91.8, MCH 29.7, MCHC 32.4, RDW Std Deviation 45.9 H, RDW Coeff of Leonardo 13.6, Plt Count 270, MPV 10.3, Immature Gran % (Auto) 0.700, Neut % (Auto) 75.6 H, Lymph % (Auto) 14.8 L, [place] % (Auto) 8.4, Eos % (Auto) 0.2, Baso % (Auto) 0.3, Absolute Neuts (auto) 13.1 H, Absolute Lymphs (auto) 2.57, Nucleated RBC % 0, Sodium 136, Potassium 3.2 L, Chloride 104, Carbon Dioxide 23.0, Anion Gap 9, BUN 10, Creatinine 0.73, Estim Creat Clear Calc 118.21, Est GFR (MDRD) Af Amer 105, Est GFR (MDRD) Non-Af 87, BUN/Creatinine Ratio 13.7, Glucose 110 H, Calcium 8.6, Total Bilirubin 0.50, AST 18, ALT 20, Alkaline Phosphatase 90, Troponin I High Sens 6, Total Protein 8.2, Albumin 2.7 L, Globulin 5.5 H, Albumin/Globulin Ratio 0.5 L 03/11/24 06:37: POC Glucose 101 03/11/24 11:42: POC Glucose 100 Microbiology: Microbiology 03/10/24 23:55 Mucosa - Nasopharyngeal Respiratory Panel (PCR) - Final 03/10/24 23:20 Urine, Clean Catch Legionella Antigen - Final 03/10/24 23:20 Urine, Clean Catch Streptococcus pneumoniae Antigen (M - Final 03/10/24 18:00 Mucosa - Nose SARS-CoV-2, Influenza & RSV (PCR) - Final Radiography Diagnostic Testing: Radiology Impression Chest X-Ray 03/10/24 18:05 IMPRESSION: No acute radiographic abnormalities. Electronically Signed: Hai Bonds MD at 18:21 EDT , Chest CTA 03/10/24 19:32 IMPRESSION: Moderate volume nonocclusive acute pulmonary emboli in the right subsegmental and left segmental and subsegmental pulmonary arteries. No evidence of right heart strain. Bubbly consolidation with groundglass opacities in the left lower lobe most likely represents lung infarction. Cannot rule out superimposed infection. 1.5 cm irregular pulmonary nodule in the left lower lobe. Recommend follow-up chest CT in 3 months, PET/CT and/or biopsy. Electronically Signed: Hai Bonds MD at 21:39 EDT , ADDENDUM: 03/10/24 2153 IMPRESSION: Moderate volume nonocclusive acute pulmonary emboli in the right subsegmental and left segmental and subsegmental pulmonary arteries. No evidence of right heart strain. Bubbly consolidation with groundglass opacities in the left lower lobe most likely represents lung infarction. Cannot rule out superimposed infection. 1.5 cm irregular pulmonary nodule in the left lower lobe. Recommend follow-up chest CT in 3 months, PET/CT and/or biopsy. N.B. : Susan Angel MD, confirmed on 03/10/2024 21:46:33 (ET) that the healthcare facility has received the radiology report. Electronically Signed: Hai Bonds MD at 21:39 EDT , ADDENDUM: 03/10/24 2358 IMPRESSION: Moderate volume nonocclusive acute pulmonary emboli in the right subsegmental and left segmental and subsegmental pulmonary arteries. No evidence of right heart strain. Bubbly consolidation with groundglass opacities in the left lower lobe most likely represents lung infarction. Cannot rule out superimposed infection. 1.5 cm irregular pulmonary nodule in the left lower lobe. Recommend follow-up chest CT in 3 months, PET/CT and/or biopsy. N.B. : Susan Angel MD, confirmed on 03/10/2024 21:46:33 (ET) that the healthcare facility has received the radiology report. Electronically Signed: Hai Bonds MD at 21:39 EDT , ADDENDUM: 03/11/24 0201 IMPRESSION: Moderate volume nonocclusive acute pulmonary emboli in the right subsegmental and left segmental and subsegmental pulmonary arteries. No evidence of right heart strain. Bubbly consolidation with groundglass opacities in the left lower lobe most likely represents lung infarction. Cannot rule out superimposed infection. 1.5 cm irregular pulmonary nodule in the left lower lobe. Recommend follow-up chest CT in 3 months, PET/CT and/or biopsy. N.B. : Susan Angel MD, confirmed on 03/10/2024 21:46:33 (ET) that the healthcare facility has received the radiology report. Electronically Signed: Hai Bonds MD at 21:39 EDT , Abdomen/Pelvis CT 03/10/24 19:33 IMPRESSION: Minimal bilateral hydronephrosis. No obstructing stone or mass seen. Electronically Signed: Hai Bonds MD at 21:42 EDT , Meaningful Use Info Meaningful Use Meaningful Use Diagnoses (Choose all that apply): VTE Ischemic Stroke Statin Dosing Therapy Reference: STATIN DOSE THERAPY REFERENCE: * Patients > 75 years receive moderate or high dose statin therapy. * Patients 75 years or YOUNGER should receive HIGH intensity statin dose unless contraindicated. You will be required to document reason for non-treatment if statin daily dose does not meet guidelines. HIGH DOSE STATIN THERAPY DAILY Atorvastatin > than or = to 40 mg Rosuvastatin > than or = to 20 mg Amlodipine + Atorvastatin > than or = to 2.5/40 mg Ezetimibe + Simvastatin 10/80 mg Simvastatin 80mg VTE Anticoag overlap given w/in hospital stay or rx'd at fl?: Yes Pt receive overlap for 5 days?: No Reason overlap not ordered, prescribed, or given for 5 days: Treatment Not Indicated Discharge Plan Admission Admit Date/Time: 03/10/24 22:13 Primary Reason for Your Visit: Cough and shortness of breath Attending Provider: Timothy Quarles Primary Care Provider: Aundrea Laboy Consulting Providers: Vivian Saini Instructions Additional Instructions / Restrictions: Please take Eliquis 5 mg (1 pill) twice daily for the next 3 months. Please take levofloxacin 750 mg daily (1 pill) for the next 6 days to complete a 7-day course of antibiotics total. Follow-up with your PCP as needed and the plan will be to have a repeat CT scan of your chest done in about 3 months. Discharge Orders/Prescriptions Prescriptions: New Eliquis 5 mg tablet 5 mg PO BID 30 Days Qty: 60 2RF levofloxacin 750 mg tablet 750 mg PO DAILY 6 Days Qty: 6 0RF Continued levothyroxine 88 mcg tablet 88 mcg PO DAILY fluticasone propionate 50 mcg/actuation spray,suspension 2 spray INTRANASAL QODAY cholecalciferol (vitamin D3) 250 mcg (10,000 unit) capsule 10,000 unit PO DAILY cyanocobalamin (vitamin B-12) 1,000 mcg capsule 1,000 mcg PO QMONTH Patient Comments: Pt unaware of dosage Centrum Silver 0.4 mg-300 mcg- 250 mcg tablet 1 tab PO DAILY albuterol sulfate 90 mcg/actuation HFA aerosol inhaler 2 puff inhalation Q4H PRN PRN (Reason: shortness of breath or wheezing) omega 5-alx-lqr-fish oil [Fish Oil] 1,200 (144-216) mg capsule 1 cap PO DAILY Patient Comments: Pt unaware of dosage semaglutide (weight loss) 1 mg/0.5 mL pen injector 0.25 mg subcut QWEEK Patient Comments: Pt unaware of dosage Referrals / Follow Up: Aundrea Laboy, [facility] [Primary Care Provider] - Disposition Disposition (needs filled in before D/C Order can be placed): Home, Self Care Charges/Coding Visit Charges Inpatient E&M: 55169 Disch Hosp >30min
--- NOTE | 2024-03-11 14:55 | CASEMGMT ---
Patient has order for discharge. Patient does not qualify for home oxygen. Patient discharging on Eliquis, FAISAL FRANCISCO called [facility] and copay is $35. FAISAL FRANCISCO in to discuss needs at discharge. FAISAL FRANCISCO provided patient with [employer] $10 copay card. Patient denies further needs or concerns. Patient had no further questions.
--- NOTE | 2024-03-11 15:25 | PHA.DC_ITS ---
Pharmacy [facility] has performed discharge medication reconciliation and counseling for this patient. Patient does not want 10mg po bid x 7 day loading dose per discharge summary. 1. APIXABAN 5MG PO BID 2. LEVOFLOXACIN 750MG PO DAILY X 6 DAYS The patient's discharge medication list was reviewed for discrepancies and discrepancies were resolved. The patient was counseled on the following discharge medications and changes in medications for homegoing were reviewed. The Reason for Use, instructions for use, and potential side effects were reviewed for all new medications. The patient's questions regarding all of their medications were answered. The patient was able to verbally demonstrate an understanding of their discharge medications. Medications at Discharge Home Medications albuterol sulfate 90 mcg/actuation aerosol inhaler 2 puff inhalation Q4H PRN PRN shortness of breath or wheezing 03/10/24 cholecalciferol (vitamin D3) 250 mcg (10,000 unit) capsule 10,000 unit PO DAILY Supplimentation 03/10/24 cyanocobalamin (vitamin B-12) 1,000 mcg capsule 1,000 mcg PO QMONTH Supplimentation 03/10/24 fluticasone propionate 50 mcg/actuation nasal spray,suspension 2 spray intranasal QODAY Allergies 03/10/24 levothyroxine 88 mcg tablet 88 mcg PO DAILY hypothyroid 03/10/24 sxidmepn-rgx-qdedg acid 0.4 mg-lycopene 300 mcg-lutein 250 mcg tablet (Centrum Silver) 1 tab PO DAILY Supplimentation 03/10/24 omega 7-gze-duj-fish oil 1,200 mg (144 mg-216 mg) capsule (Fish Oil) 1 cap PO DAILY Suppliumentation 03/10/24 semaglutide (weight loss) 1 mg/0.5 mL subcutaneous pen injector 0.25 mg subcut QWEEK Weight Loss 03/10/24 apixaban 5 mg tablet (Eliquis) 5 mg PO BID 30 days #60 tabs 03/11/24 levofloxacin 750 mg tablet 750 mg PO DAILY 6 days #6 tabs 03/11/24
== END 2024-03-11 16:24 | disposition home or self-care (01) | DRG 175 ==
LOC: ED 22:03 → PCU 22:36
PROVIDERS: Admitting Provider Family Medicine; Emergency Provider Emergency Medicine; PCP Nurse Practitioner Family; Referring Provider Family Medicine; Visit Provider Hospitalist
DX: I26.99 Other pulmonary embolism without acute cor pulmonale (principal); J18.9 Pneumonia, unspecified organism; E87.1 Hypo-osmolality and hyponatremia; Z68.42 Body mass index [BMI] 45.0-49.9, adult; N13.30 Unspecified hydronephrosis; E87.8 Other disorders of electrolyte and fluid balance, not elsewhere classified; E11.9 Type 2 diabetes mellitus without complications; E66.01 Morbid (severe) obesity due to excess calories; I26.94 Multiple subsegmental thrombotic pulmonary emboli without acute cor pulmonale; E03.9 Hypothyroidism, unspecified; E06.3 Autoimmune thyroiditis; J45.909 Unspecified asthma, uncomplicated; G47.33 Obstructive sleep apnea (adult) (pediatric); E87.6 Hypokalemia; R19.7 Diarrhea, unspecified; R91.1 Solitary pulmonary nodule; Z79.899 Other long term (current) drug therapy
CPT/HCPCS: 36415; 71045; 71275; 74177; 80048; 80053; 81001; 82962; 83735; 83880; 84145; 84484; 85025; 87449; 87631; 87633; 93005; 93306; 94640; 94660; 94668; 99284; J7030; J7040; Q9957; Q9967; A4216; C8929; J2405